=== PATIENT | female | born 1975 | race Caucasian/White ===

== ENCOUNTER 2020-06-20 13:06 | Outpatient (REF) | payer OTHER, SELFPAY ==
[2020-06-20 13:26] LABS: COVID-19 Test Negative (Negative)
== END 2020-06-20 13:07 | disposition home or self-care (01) ==
LOC: HO.EMPCOV 13:06
PROVIDERS: Visit Provider Internal Medicine
DX: Z20.828 Contact with and (suspected) exposure to other viral communicable diseases (principal)
CPT/HCPCS: 87635; C9803

== ENCOUNTER 2020-06-27 10:45 | Outpatient (REF) | payer OTHER, SELFPAY ==
[2020-06-27 11:15] LABS: COVID-19 Test Negative (Negative); IDNOW Serial# 55D5AD1C
== END 2020-06-27 10:46 | disposition home or self-care (01) ==
LOC: HO.EMPCOV 10:45
PROVIDERS: Visit Provider Internal Medicine
DX: Z20.828 Contact with and (suspected) exposure to other viral communicable diseases (principal)
CPT/HCPCS: 87635; C9803

== ENCOUNTER 2020-09-15 14:51 | Outpatient (REF) | payer OTHER, SELFPAY ==
--- NOTE | ~2020-09-15 | XR_ITS ---
EXAMINATION: XR thoracic spine 2V, XR lumbar spine 2-3V, XR cervical spine 3V, XR shoulder RT min 2V CLINICAL INFORMATION: Cervicalgia. Pain in thoracic spine. Spondylosis without myelopathy or radiculopathy, lumbar region. Pain in right shoulder COMPARISON: None. TECHNIQUE: AP and lateral views of the lumbar spine with lateral view of the lumbosacral junction. AP and lateral views of the thoracic spine. AP, lateral, and odontoid views of the cervical spine. AP external rotation, Grashey, axillary, and Y views of the right shoulder. FINDINGS: Visualized clavicle is intact. The right acromioclavicular and glenohumeral joints are maintained. No fracture or dislocation seen. The dens is intact. The lateral masses are normally positioned. Normal sagittal alignment of the cervical spine. Normal prevertebral soft tissues. Mild degenerative endplate irregularity at C6-7 and C7-T1 no fracture seen. Normal sagittal alignment of the thoracic spine. Vertebral body and disc heights in the thoracic spine are maintained. Posterior elements are intact. 5 nonrib-bearing lumbar type vertebral bodies are present. Normal sagittal alignment of the lumbar spine. There may be mild lower lumbar facet arthropathy. Mild spurring of the superior endplate of L5. XR/XR lumbar spine 2-3V IMPRESSION: No acute osseous abnormality of the right shoulder, cervical spine, thoracic spine, or lumbar spine. Mild degenerative changes at C6-7, C7-T1, and L4-5.
--- NOTE | ~2020-09-15 | XR_ITS ---
EXAMINATION: XR thoracic spine 2V, XR lumbar spine 2-3V, XR cervical spine 3V, XR shoulder RT min 2V CLINICAL INFORMATION: Cervicalgia. Pain in thoracic spine. Spondylosis without myelopathy or radiculopathy, lumbar region. Pain in right shoulder COMPARISON: None. TECHNIQUE: AP and lateral views of the lumbar spine with lateral view of the lumbosacral junction. AP and lateral views of the thoracic spine. AP, lateral, and odontoid views of the cervical spine. AP external rotation, Grashey, axillary, and Y views of the right shoulder. FINDINGS: Visualized clavicle is intact. The right acromioclavicular and glenohumeral joints are maintained. No fracture or dislocation seen. The dens is intact. The lateral masses are normally positioned. Normal sagittal alignment of the cervical spine. Normal prevertebral soft tissues. Mild degenerative endplate irregularity at C6-7 and C7-T1 no fracture seen. Normal sagittal alignment of the thoracic spine. Vertebral body and disc heights in the thoracic spine are maintained. Posterior elements are intact. 5 nonrib-bearing lumbar type vertebral bodies are present. Normal sagittal alignment of the lumbar spine. There may be mild lower lumbar facet arthropathy. Mild spurring of the superior endplate of L5. XR/XR thoracic spine 2V IMPRESSION: No acute osseous abnormality of the right shoulder, cervical spine, thoracic spine, or lumbar spine. Mild degenerative changes at C6-7, C7-T1, and L4-5.
--- NOTE | ~2020-09-15 | XR_ITS ---
EXAMINATION: XR thoracic spine 2V, XR lumbar spine 2-3V, XR cervical spine 3V, XR shoulder RT min 2V CLINICAL INFORMATION: Cervicalgia. Pain in thoracic spine. Spondylosis without myelopathy or radiculopathy, lumbar region. Pain in right shoulder COMPARISON: None. TECHNIQUE: AP and lateral views of the lumbar spine with lateral view of the lumbosacral junction. AP and lateral views of the thoracic spine. AP, lateral, and odontoid views of the cervical spine. AP external rotation, Grashey, axillary, and Y views of the right shoulder. FINDINGS: Visualized clavicle is intact. The right acromioclavicular and glenohumeral joints are maintained. No fracture or dislocation seen. The dens is intact. The lateral masses are normally positioned. Normal sagittal alignment of the cervical spine. Normal prevertebral soft tissues. Mild degenerative endplate irregularity at C6-7 and C7-T1 no fracture seen. Normal sagittal alignment of the thoracic spine. Vertebral body and disc heights in the thoracic spine are maintained. Posterior elements are intact. 5 nonrib-bearing lumbar type vertebral bodies are present. Normal sagittal alignment of the lumbar spine. There may be mild lower lumbar facet arthropathy. Mild spurring of the superior endplate of L5. XR/XR shoulder RT min 2V IMPRESSION: No acute osseous abnormality of the right shoulder, cervical spine, thoracic spine, or lumbar spine. Mild degenerative changes at C6-7, C7-T1, and L4-5.
--- NOTE | ~2020-09-15 | XR_ITS ---
EXAMINATION: XR thoracic spine 2V, XR lumbar spine 2-3V, XR cervical spine 3V, XR shoulder RT min 2V CLINICAL INFORMATION: Cervicalgia. Pain in thoracic spine. Spondylosis without myelopathy or radiculopathy, lumbar region. Pain in right shoulder COMPARISON: None. TECHNIQUE: AP and lateral views of the lumbar spine with lateral view of the lumbosacral junction. AP and lateral views of the thoracic spine. AP, lateral, and odontoid views of the cervical spine. AP external rotation, Grashey, axillary, and Y views of the right shoulder. FINDINGS: Visualized clavicle is intact. The right acromioclavicular and glenohumeral joints are maintained. No fracture or dislocation seen. The dens is intact. The lateral masses are normally positioned. Normal sagittal alignment of the cervical spine. Normal prevertebral soft tissues. Mild degenerative endplate irregularity at C6-7 and C7-T1 no fracture seen. Normal sagittal alignment of the thoracic spine. Vertebral body and disc heights in the thoracic spine are maintained. Posterior elements are intact. 5 nonrib-bearing lumbar type vertebral bodies are present. Normal sagittal alignment of the lumbar spine. There may be mild lower lumbar facet arthropathy. Mild spurring of the superior endplate of L5. XR/XR cervical spine 3V IMPRESSION: No acute osseous abnormality of the right shoulder, cervical spine, thoracic spine, or lumbar spine. Mild degenerative changes at C6-7, C7-T1, and L4-5.
== END 2020-09-15 14:52 | disposition home or self-care (01) ==
LOC: HO.XRAY 14:51
PROVIDERS: PCP Physician Assistant; Visit Provider Internal Medicine
DX: M54.6 Pain in thoracic spine (principal); M47.816 Spondylosis without myelopathy or radiculopathy, lumbar region; M25.511 Pain in right shoulder; M54.2 Cervicalgia
CPT/HCPCS: 72040; 72070; 72100; 73030

== ENCOUNTER 2020-11-19 16:00 | Outpatient (RCR) | payer OTHER, SELFPAY ==
--- NOTE | 2020-09-22 13:12 | MHC.PT.EP ---
[facility] [place] Office [place] Office [place] Office [address] Tiffany Tinajero [address] [phone] F: [phone] F: [phone] F: [phone] F: [phone] Physical Therapy Plan of Care Date of Evaluation: 09/22/20 Date of Surgery: N/A Diagnosis: Pain in right shoulder Cervicalgia Assessment: Mendy is a 44-year-old female referred to physical therapy with right shoulder pain. Her pain is located in her right upper trap and travels to the top of her right shoulder and AC joint. She presents with impairments in global R shoulder strength, impaired posture, decreased scapular muscle strength, and tenderness and muscle guarding in her right upper trap. These impairments results in pain with ADLS. Mendy would benefit from skilled therapy to improve her tolerance to reaching behind her back and overhead, lifting and carrying items, bathing and dressing, and caring for her child. Frequency and Duration: The patient will be seen 2 visits per week for 6 weeks Short Term Goals: 1.) Pt will demonstrate ability to reach behind her back for bathing and dressing purposes with <2/10 pain within 3 weeks. 2.) Pt will independently assess and correct seated posture every 30 minutes while working within 3 weeks. 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 2.) Pt will be independent with [facility] for symptom management and maintenance following discharge within 6 weeks. Treatment Plan: Modalities to reduce pain, spasms and effusion. Manual therapy to restore motion and function. Therapeutic exercise to improve strength and flexibility. Neuromuscular re-education for posture and balance. Therapeutic activities to return to functional activities of daily living. Electronically signed by: Glo Palmer, PT, DPT Please sign and return to therapist. Thank you for your referral.
--- NOTE | 2020-12-17 15:50 | MHC.PT.DC ---
[facility] [place] Office [place] Office [place] Office [address] Tiffany Tinajero [address] [facility] [phone] F: [phone] F: [phone] F: [phone] F: [phone] Physical Therapy Discharge Report Diagnosis: Pain in right shoulder Cervicalgia Date of Surgery: N/A Date of Evaluation: 09/22/20 Date of Discharge: 11/19/20 Treatments to Date: 8 Cancellations to Date: 3 No Shows to Date: 0 Discharge Status: Improved Function Independent with HEP Discharge Summary: Mendy has completed 8 PT visits and has noted improvement in her functions and pain level. She is independent with all her HEPs as well. She was therefore been d/c from therapy. Electronically signed by: Glo Palmer, PT, DPT Please sign and return to therapist. Thank you for your referral.
== END 2020-12-17 15:51 | disposition other institution (70) ==
LOC: HO.PT 16:00
PROVIDERS: PCP Internal Medicine; Visit Provider Internal Medicine
DX: M25.511 Pain in right shoulder (principal); M54.2 Cervicalgia
CPT/HCPCS: 97110; 97112; 97140; 97161

== ENCOUNTER 2020-12-12 08:42 | Outpatient (REF) | payer OTHER, SELFPAY ==
[2020-12-12 09:00] LABS: COVID-19 Test Negative (Negative)
== END 2020-12-12 08:43 | disposition home or self-care (01) ==
LOC: HO.EMPCOV 08:42
PROVIDERS: Visit Provider Internal Medicine
DX: Z20.822 Contact with and (suspected) exposure to COVID-19 (principal)
CPT/HCPCS: 36415; 87635; C9803

== ENCOUNTER 2020-12-16 09:21 | Outpatient (REF) | payer OTHER, SELFPAY ==
[2020-12-16 09:39] LABS: COVID-19 Test Negative (Negative)
== END 2020-12-16 09:22 | disposition home or self-care (01) ==
LOC: HO.EMPCOV 09:21
PROVIDERS: Visit Provider Internal Medicine
DX: Z20.822 Contact with and (suspected) exposure to COVID-19 (principal)
CPT/HCPCS: 36415; 87635; C9803

== ENCOUNTER 2022-02-09 16:48 | Outpatient (REF) | payer OTHER, SELFPAY ==
--- NOTE | ~2022-02-09 | XR_ITS ---
EXAMINATION: XR KNEE, RIGHT CLINICAL INFORMATION: Pain COMPARISON: None TECHNIQUE: Four views of the right knee. FINDINGS: Bones and soft tissues are normal. No fracture or joint effusion. Alignment is anatomic. Joint spaces are well maintained. No abnormal soft tissue calcification. XR/XR knee RT 2V IMPRESSION: Unremarkable right knee.
== END 2022-02-09 16:49 | disposition home or self-care (01) ==
LOC: HO.XRAY 16:48
PROVIDERS: PCP Internal Medicine; Visit Provider Internal Medicine
DX: M25.561 Pain in right knee (principal)
CPT/HCPCS: 73560

== ENCOUNTER 2022-04-28 14:00 | Outpatient (RCR) | payer OTHER, SELFPAY ==
--- NOTE | 2022-02-16 15:48 | MHC.PT.EP ---
[facility] [place] Office [place] Office [place] [facility] [address] Tiffany Tinajero [address] [phone] F: [phone] F: [phone] F: [phone] F: [phone] Physical Therapy Plan of Care Date of Evaluation: Date of Surgery: N/A Diagnosis: pain in R knee (RC) Assessment: pt is a 46 y/o female presenting to physical therapy w/ referring diagnosis of right knee pain. Her signs and symptoms are consistent w/ quad strain. Impairments include pain, decreased range of motion, decreased strength, impaired functional mobility, impaired postural awareness, and gait deviations. pt is a good candidate for skilled PT due to age, potential remediation of impairments, typical disease/condition progression and prognosis, comorbidities, and motivation. pt would benefit from tailored strengthening and stretching exercise program, functional training, gait training, postural re-training, neuromuscular re-education, modalities as needed for pain, equipment safety demonstration. Frequency and Duration: The patient will be seen 2x/wk for 4 wks Short Term Goals: pt will be I w/ HEP to promote self-management of condition. pt will demo improved squat mechanics w/ improved hip and knee flexion to reduce stress on knee w/ reaching to get objects off the floor. Photographer Portrait Goals: pt will report a statistically significant improvement in self-reported outcome measure, LEFI, to promote return to PLOF. pt will report a 75% pain reduction w/ ascending and descending her stairs to access primary living spaces. Treatment Plan: Modalities to reduce pain, spasms and effusion. Manual therapy to restore motion and function. Therapeutic exercise to improve strength and flexibility. Neuromuscular re-education for posture and balance. Therapeutic activities to return to functional activities of daily living. Electronically signed by: Please sign and return to therapist. Thank you for your referral.
--- NOTE | 2022-04-28 14:37 | MHC.PT.DC ---
[facility] [place] Office [place] Office [place] Office [address] Tiffany Tinajero [address] [phone] F: [phone] F: [phone] F: [phone] F: [phone] Physical Therapy Discharge Report Diagnosis: pain in R knee (RC) Date of Surgery: N/A Date of Evaluation: 02/15/22 Date of Discharge: Treatments to Date: 3 Cancellations to Date: 0 No Shows to Date: 0 Discharge Status: Discharge Summary: The patient arrived after two months after her initial evaluation and first follow-up. She stated she feels her symptoms have resolved 95%. She has had fair compliance with recommended exercises to manage her symptoms. We reviewed this home exercise program and she continues to feel good without symptoms. She felt relieved and a release of tension after stretching. We reviewed importance of appropriate warm-up prior to activity, gradual return to running (recommended Couch to 5K mimi), and compliance to HEP. She is discharged from this physical therapy plan of care. Electronically signed by: Please sign and return to therapist. Thank you for your referral.
== END 2022-04-28 14:37 | disposition home or self-care (01) ==
LOC: HO.PT 14:00
PROVIDERS: PCP Internal Medicine; Visit Provider Internal Medicine
DX: M25.561 Pain in right knee (principal)
CPT/HCPCS: 97110; 97161

== ENCOUNTER 2022-06-03 12:30 | Outpatient (REF) | payer OTHER, SELFPAY ==
--- NOTE | ~2022-06-03 | MM_ITS ---
EXAMINATION: MM SCREENING DIGITAL BREAST TOMOSYNTHESIS, BILATERAL CLINICAL INFORMATION: Screening. Asymptomatic. COMPARISON: Mammography: None TECHNIQUE: Digital breast tomosynthesis is performed in both the craniocaudal and mediolateral oblique views along with computer-aided detection (CAD). Synthesized 2D images are generated from the tomosynthesis. FINDINGS: There are scattered areas of fibroglandular density (ACR BI-RADS breast composition Category b). There are no significant masses, abnormal calcifications, or other abnormalities. MM/MM tomosynthesis screening BI IMPRESSION: No mammographic evidence of malignancy. ASSESSMENT: BI-RADS 1: Negative RECOMMENDATION: Routine annual mammography screening. This patient's information was entered into a reminder system with a target due date for their next mammogram.
== END 2022-06-03 12:31 | disposition home or self-care (01) ==
LOC: HO.MAMMO 12:30
PROVIDERS: PCP Internal Medicine; Visit Provider Internal Medicine
DX: Z12.31 Encounter for screening mammogram for malignant neoplasm of breast (principal)
CPT/HCPCS: 77063; 77067

== ENCOUNTER 2022-06-05 07:36 | Outpatient (REF) | payer OTHER, SELFPAY ==
[2022-06-05 07:48] LABS: MANUAL DIFF FLAG NO
[2022-06-05 08:15] LABS: Basophils Percent Auto 0.5 % (0-2); Eosinophils Absolute Auto 0.1 X10*3/uL (0.0-0.4); Eosinophils Percent Auto 3.2 % (0-4); Hemoglobin 12.4 g/dl (12.0-16.0); Imm Gran Abs Auto 0.01 X10*3/uL (0.00-0.03); Imm Gran Pct Auto 0.2 % (0.0-0.4); Lymphocytes Absolute Auto 1.7 X10*3/uL (1.2-4.9); Lymphocytes Percent Auto 37.4 % (20-40); Mean Corpuscular HGB Conc 35.4 g/dl (31.0-35.0); Mean Corpuscular Hemoglobin 31.6 pg (27.0-33.0); Mean Corpuscular Volume 89.3 fL (80.0-98.0); Mean Platelet Volume 9.8 fL (9.4-12.3); Monocytes Absolute Auto 0.3 X10*3/uL (0.1-1.2); Monocytes Percent Auto 7.2 % (2-11); Neutrophils Absolute Auto 2.3 x10*3/uL (2.0-8.3); Neutrophils Percent Auto 51.5 % (45-73); Platelet Count 238 X10*3/uL (160-400); Red Blood Count 3.92 X10*6/uL (4.20-5.50); White Blood Count 4.4 X10*3/uL (4.8-10.8)
[2022-06-05 08:40] LABS: Alanine Aminotransferase 21 U/L (0-31); Albumin Level 4.4 g/dL (3.5-5.0); Alkaline Phosphatase 44 U/L (39-117); Anion Gap 14 (12-20); Aspartate Amino Transferase 18 U/L (5-31); Bilirubin Total 0.5 mg/dL (0.0-1.0); Blood Urea Nitrogen 13 mg/dL (9-16); Calcium 9.4 mg/dL (8.4-10.2); Carbon Dioxide 24 mmol/L (22-29); Chloride 105 mmol/L (96-108); Cholesterol 160 mg/dL; Estimated Glomerular Filt Rate > 60; Glucose Random 89 mg/dL (60-115); HDL Cholesterol 43 mg/dL; LDL Cholesterol Calculated 102 mg/dl; Potassium 4.1 mmol/L (3.3-5.1); Sodium 139 mmol/L (135-145); Total Protein 7.2 g/dL (6.5-8.0); Triglycerides 79 mg/dL
[2022-06-05 09:01] LABS: Free T4 (Free Thyroxine) 1.01 ng/dL (0.71-1.85); Thyroid Stimulating Hormone 2.32 uIU/mL (0.32-4.0)
[2022-06-05 09:11] LABS: Appearance Urine Clear; Color Urine Yellow; Glucose Urine UA Negative (Negative); Leukocyte Esterase Urine Negative (Negative); Nitrite Urine Negative (Negative); Urine Blood Negative (Negative); Urine Ketones Negative (Negative); Urine Protein Negative (Neg-Trace)
[2022-06-05 09:13] LABS: Folate 11.3 ng/mL (> or = 4.0); Vitamin B12 361 pg/mL (200-900)
[2022-06-05 09:17] LABS: Bacteria Urine None Seen (None Seen); Hyaline Casts Urine 0-2 /LPF (0-2); RBC Urine 0-2 /HPF (0-2); Squamous Epithelial Cell Urine 0-2 /HPF (0-2); WBC Urine 0-5 /HPF (0-5)
[2022-06-05 15:16] LABS: Vitamin D 25-OH Total 19.4 ng/mL (>30)
== END 2022-06-05 07:37 | disposition home or self-care (01) ==
LOC: HO.LAB 07:36
PROVIDERS: PCP Internal Medicine; Visit Provider Internal Medicine
DX: E66.3 Overweight (principal)
CPT/HCPCS: 36415; 80053; 80061; 81001; 82306; 82607; 82746; 84439; 84443; 85025

== ENCOUNTER 2022-07-12 12:37 | Outpatient (REF) | payer OTHER, SELFPAY ==
[2022-07-12 13:34] LABS: Influenza A PCR POSITIVE (Negative); Influenza B PCR NEGATIVE (Negative); Resp Syncy Virus RNA Qual PCR NEGATIVE (Negative); SARS COV2 PCR INHOUSE NEGATIVE (Negative)
== END 2022-07-12 12:38 | disposition home or self-care (01) ==
LOC: HO.LAB 12:37
PROVIDERS: PCP Internal Medicine; Visit Provider Internal Medicine
DX: Z20.822 Contact with and (suspected) exposure to COVID-19 (principal); R05.9 Cough, unspecified
CPT/HCPCS: 0241U

== ENCOUNTER 2022-10-04 16:00 | Outpatient (RCR) | payer OTHER, SELFPAY ==
--- NOTE | 2022-07-16 12:16 | MHC.PT.EP ---
[facility] [place] Office [place] Office [place] Office [address] Tiffany Tinajero [address] [phone] F: [phone] F: [phone] F: [phone] F: [phone] Physical Therapy Plan of Care Date of Evaluation: Date of Surgery: Diagnosis: R shoulder pain, adhesive capsulitis Assessment: Patient is a 46 y.o. female who is referred to PT by Dr. Darrell Gandhi MD with Dx of R shoulder pain. PT diagnosis is R shoulder adhesive capsulitis. Patient impairments include pain, weakness, and reduced ROM. Patient current functional limitations are reaching behind back to put on bra, reaching to wash her hair, can't sleep on it, weakness with carrying on R arm, reaching to high shelf. Patient will benefit from skilled PT to address aforementioned impairments and functional limitations to meet established goals. Frequency and Duration: The patient will be seen 2x/week for 4 weeks Short Term Goals: 2 weeks Patient demonstrates consistency and independence with HEP to self manage symptoms. Patient presents with increased R shoulder ER 60 degrees to be able to reach behind back to don/doff bra. Chcf Goals: 4 weeks Patient presents with increased R shoulder flexion 170 degrees to be able to reach overhead to high cabinet/shelf. Patient presents with increased R shoulder flexion 5/5 to be able to carry grocery bag R hand. Treatment Plan: Modalities to reduce pain, spasms and effusion. Manual therapy to restore motion and function. Therapeutic exercise to improve strength and flexibility. Neuromuscular re-education for posture and balance. Therapeutic activities to return to functional activities of daily living. Electronically signed by: Thanh Toscano, PT, DPT Please sign and return to therapist. Thank you for your referral.
--- NOTE | 2022-12-06 16:49 | MHC.PT.DC ---
[facility] [place] Office [place] Office [place] Office [address] Tiffany Tinajero [address] [phone] F: [phone] F: [phone] F: [phone] F: [phone] Physical Therapy Discharge Report Diagnosis: R shoulder pain, adhesive capsulitis Date of Surgery: Date of Evaluation: 07/16/22 Date of Discharge: 12/06/22 Treatments to Date: 10 Cancellations to Date: No Shows to Date: Discharge Status: Independent with HEP Discharge Summary: In PT, patient has shown improved ROM and strength, but ceased attending on her own accord. She has an independent HEP to help her self manage sxs. She is discharged from PT at this time. Electronically signed by: Thanh Toscano, PT, DPT Please sign and return to therapist. Thank you for your referral.
== END 2022-12-06 16:50 | disposition home or self-care (01) ==
LOC: HO.PT 16:00
PROVIDERS: PCP Internal Medicine; Visit Provider Internal Medicine
DX: M25.511 Pain in right shoulder (principal)
CPT/HCPCS: 97110; 97140; 97161

== ENCOUNTER 2022-10-12 15:05 | Outpatient (REF) | payer OTHER, SELFPAY | END 2022-10-12 15:06 | disposition home or self-care (01) | LOC: HO.SH 15:05 | PROVIDERS: Visit Provider Internal Medicine | DX: H93.293 Other abnormal auditory perceptions, bilateral (principal) | CPT/HCPCS: 92557; 92567 ==

== ENCOUNTER 2022-11-11 11:18 | Outpatient (REF) | payer OTHER, SELFPAY ==
[2022-11-11 12:17] LABS: Influenza A PCR NEGATIVE (Negative); Influenza B PCR NEGATIVE (Negative); Resp Syncy Virus RNA Qual PCR NEGATIVE (Negative); SARS COV2 PCR INHOUSE NEGATIVE (Negative)
== END 2022-11-11 11:19 | disposition home or self-care (01) ==
LOC: HO.LNP 11:18
PROVIDERS: Visit Provider Internal Medicine
DX: R09.89 Other specified symptoms and signs involving the circulatory and respiratory systems (principal); Z20.822 Contact with and (suspected) exposure to COVID-19
CPT/HCPCS: 0241U

== ENCOUNTER 2023-02-09 10:24 | Outpatient (AMB) | payer OTHER, SELFPAY ==
[2023-02-09 10:27] VITALS: BP 124/78; PULSE 77; O2SAT 98; BMI 25.6
--- NOTE | 2023-02-09 10:27 | MHC.PC.OV ---
Vital Signs 02/09/23 10:27 Height 5 ft 4 in Weight 149 lb BMI 25.6 BP 124/78 Blood Pressure Location Lt brachial Position Sitting Pulse 77 Pulse Source Pulse Oximeter Pulse Oximetry (%) 98 Oxygen Delivery Method Room Air Intake Visit Reasons: 3m follow up Allergies No Known Allergies [No Known Allergies*] Allergy (Verified 02/09/23 10:27) Tobacco use date assessed: 02/09/23 Dental Screening Dental Screen Date: 02/09/23 Did you have a dental visit in the last 12 months?: Yes Did you have a dental problem in the last 6 months where you did not have access to dental care?: No Was dental information given to patient?: Patient has dentist HPI 3m follow up HPI Details 47-year-old Year old overweight female last seen in April 2022 came in for physical exam. Advised preventive medicine of mammogram blood work had some shoulder pain on the right and went for physical therapy patient is here for follow-up. Patient did go to the Urgent Center in October 2022 for flu like symptoms. Found to have flu. Patient has been doing good the right shoulder is a little bit better although has some small limitation but otherwise doing good discussed about exercising. Patient is very stressed out as father is sick with peripheral tear disease from a diabetes and she is taking care. 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 1. Little interest or pleasure in doing things: not at all 2. Feeling down, depressed, or hopeless: not at all 3. Trouble falling or staying asleep, or sleeping too much: not at all 4. Feeling tired or having little energy: not at all 5. Poor appetite or overeating: not at all 6. Feeling bad about yourself - or that you are a failure or have let yourself or your family down: not at all 7. Trouble concentrating on things, such as reading the newspaper or watching television: not at all 8. Moving or speaking so slowly that other people could have noticed. Or the opposite - being so fidgety or restless that you have been moving around a lot more than usual: not at all 9. Thoughts that you would be better off or of hurting yourself in some way: not at all Total score: 0 Depression Screening Interpretation: Negative Source: Developed by Drs. Juan Obrien, Nasreen Granda, Jaswinder Min and colleagues, with an educational derrick from [employer]. Thrive Questionnaire Date Thrive assessed: 02/09/23 I am a: Patient What is your living situation today?: I have a steady place to live Within the past 12 months, did the food you bought not last and you didn't have the money to get more?: Never true Within the past 12 months, did you worry whether your food would run out before you got money to buy more?: Never true Do you have trouble paying for medicines?: No Do you have trouble getting transportation to medical appointments?: No Do you have trouble paying your heating and electricity bill?: No Do you have trouble taking care of your child, family member or friend?: No Do you have trouble with day-to-day activities such as bathing, preparing meals, shopping, managing finances, etc.?: No Are you currently unemployed and looking for a job?: No Are you interested in more education?: No Currently or been in a relationship where the following occur: no concerns reported AUDIT C Alcohol Use Questionnaire (AUDIT-C) 1. How often do you have a drink containing alcohol?: Monthly or less 2. How many drinks containing alcohol do you have on a typical day when you are drinking?: 1 or 2 3. How often do you have six or more drinks on one occasion?: Never Total Score: 1 JOB-7 AMB Questionnaire JOB-7 Date JOB - 7 assessed: 02/09/23 Feeling nervous, anxious, or on edge: 0 = Not at all Not being able to stop or control worryin = Not at all Worrying too much about different things: 0 = Not at all Trouble relaxin = Not at all Being so restless that it is hard to sit still: 0 = Not at all Becoming easily annoyed or irritable: 0 = Not at all Feeling afraid as if something awful might happen: 0 = Not at all Total JOB-7 score (0-4 normal; 5-9 mild; 10-14 moderate; 15-21 severe): 0 Source: Developed by Drs. Juan Obrien, Nasreen Granda, Jaswinder Min and colleagues, with an educational derrick from [employer]. Physical exam (Primary Care) Vital Signs: Last Vital Signs Pulse 77 02/09/23 10:27 BP 124/78 02/09/23 10:27 Pulse Ox 98 02/09/23 10:27 Oxygen Delivery Method Room Air 02/09/23 10:27 BMI result Body Mass Index 25.6 Tobacco/Smoking Status: Tobacco use Status Tobacco use date assessed 02/09/23 02/09/23 10:33 Patient Tobacco Use Status Never used Tobacco 02/09/23 10:33 e-Cigarette/Vaping Use Never Used 02/09/23 10:33 PHQ-9: PHQ-9 Score PHQ-9: Total score 0 02/09/23 10:33 Depression Screening Interpretation: Negative Thrive Assessment: Date of Thrive Assessment Date Thrive assessed 02/09/23 02/09/23 10:33 Currently or been in a relationship where the following occur: no concerns reported Const General: alert; No acute distress Eyes Conjunctivae: conjunctivae normal Resp Auscultation: clear to auscultation bilaterally Cardio Rate: regular rate Rhythm: regular rhythm GI Inspection: Yes normal to inspection Extrem General: Yes normal to inspection and No edema Assessment and Plan Assessment & Plan (1) Vitamin D deficiency: Code(s): E55.9 - Vitamin D deficiency, unspecified (2) Right shoulder pain: Code(s): M25.511 - Pain in right shoulder (3) Influenza: Code(s): J11.1 - Influenza due to unidentified influenza virus with other respiratory manifestations (4) Cervical cancer screening: Code(s): Z12.4 - Encounter for screening for malignant neoplasm of cervix Orders: Referrals PACKAGE CLERK Referral Z12.4 - Encounter for screening for malignant neoplasm of cervix Coding Level of Care Code Est Pt Level 4 (68021) Diagnoses Vitamin D deficiency E55.9 Right shoulder pain M25.511 Influenza J11.1 Cervical cancer screening Z12.4
== END 2023-02-09 11:07 | disposition home or self-care (01) ==
PROVIDERS: PCP Internal Medicine; Visit Provider Internal Medicine
DX: E55.9 Vitamin D deficiency, unspecified (principal); M25.511 Pain in right shoulder; J11.1 Influenza due to unidentified influenza virus with other respiratory manifestations
CPT/HCPCS: 99214

== ENCOUNTER 2023-04-12 08:46 | Outpatient (AMB) | payer OTHER, SELFPAY ==
--- NOTE | 2023-04-12 08:48 | AM.OFFWIN_ITS ---
Intake Vital Signs 04/12/23 08:50 Weight 148 lb BP 100/70 Blood Pressure Location Rt brachial Position Sitting Pulse 61 Pulse Source Pulse Oximeter Pulse Oximetry (%) 98 Oxygen Delivery Method Room Air Intake Visit Reasons: EP, Left eye redness Intake Note: Patient here because she woke up this morning with her left eye red and slight headache, she states it is very puffy, vision looks glossy she states she just moved back into her home where [place], she also mentioned someone in her dept had pink eye recently so she is unsure what it could be. Patient Tobacco Use Status: Never used Tobacco Allergies No Known Allergies [No Known Allergies*] Allergy (Verified 04/12/23 09:19) Medication List - Last Reconciled 04/12/23 by Jacobo Watkins MD No Known Home Meds Do you need a note to return to daycare/school/sports/work: Yes HPI EP, Left eye redness HPI Details 47-year-old female presents to the [facility] for a sick visit. Patient has a pinkeye since this morning. Increased tearing and mucoid discharge. She has not been wearing contact lenses for more than a month for other reasons. She has a new cat at home. 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 Corneas clear. No fluoro uptake. Assessment & Plan Assessment & Plan (1) Conjunctivitis: Code(s): H10.9 - Unspecified conjunctivitis Plan: Erythromycin ophthalmic ointment prescribed. If symptoms not better to follow- up here. Coding Level of Care Code Est Pt Level 3 (04177) Diagnoses Conjunctivitis H10.9
[2023-04-12 08:50] VITALS: BP 100/70; PULSE 61; O2SAT 98
== END 2023-04-12 09:27 | disposition home or self-care (01) ==
PROVIDERS: PCP Internal Medicine; Visit Provider Internal Medicine
DX: H10.9 Unspecified conjunctivitis (principal)
CPT/HCPCS: 99213

== ENCOUNTER 2023-06-03 16:21 | Outpatient (AMB) | payer OTHER, SELFPAY ==
--- NOTE | 2023-06-03 16:24 | A.OFFPC_ITS ---
Vital Signs 06/03/23 16:26 Height 5 ft 4 in Weight 151 lb 2 oz BMI 25.9 BP 112/74 Blood Pressure Location Lt brachial Position Sitting Respiration 16 Pulse 75 Pulse Source Pulse Oximeter Pulse Oximetry (%) 98 Oxygen Delivery Method Room Air Intake Visit Reasons: physical Allergies No Known Allergies [No Known Allergies*] Allergy (Verified 04/12/23 09:19) Medication List - Last Reconciled 06/03/23 by Darrell Gandhi MD Tobacco use date assessed: 02/09/23 HPI physical HPI Details 47-year-old female last seen in January coming in for physical exam. Review of the notes [facility] in the Urgent [facility] for left eye conjunctivitis [facility] Medical History (Updated 04/12/23 @ 09:23 by Jacobo Watkins MD) Cervical cancer screening Thoracic spine pain Right shoulder pain Neck pain Lumbar spondylosis Family History (Updated 06/03/23 @ 16:47 by Darrell Gandhi MD) Mother Myocardial infarct Father Renal cancer Myocardial infarct Diabetes mellitus Maternal Grandfather Colon cancer Social History (Updated 06/03/23 @ 16:48 by Darrell Gandhi MD) Housing: House Alcohol intake: current Patient Tobacco Use Status: Never used Tobacco e-Cigarette/Vaping Use: Never Used service: No Current occupational status: employed 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 Juan Obrien, Nasreen Granda, Jaswinder Min and colleagues, with an educational derrick from [employer]. Review of Systems Const Denies poor appetite and Denies weakness Eyes Denies no additional complaints ENT Reports Normal hearing present, Denies dizziness, Denies nasal congestion, Denies tinnitus and Denies sore throat Card Denies chest pain, Denies syncope, Denies rapid heart rate and Denies dyspnea Resp Denies cough and Denies dyspnea GI Denies change in stool character, Reports constipation, Denies diarrhea, Denies nausea and Denies vomiting Denies urinary frequency, Denies difficulty voiding and Denies dysuria Neuro Reports Normal hearing present, Denies confusion, Denies dizziness, Denies syncope and Denies weakness Psych Denies confusion Physical exam (Primary Care) Vital Signs: Last Vital Signs Pulse 75 06/03/23 16:26 Resp 16 06/03/23 16:26 BP 112/74 06/03/23 16:26 Pulse Ox 98 06/03/23 16:26 Oxygen Delivery Method Room Air 06/03/23 16:26 BMI result Body Mass Index 25.9 Tobacco/Smoking Status: Tobacco use Status Tobacco use date assessed 02/09/23 06/03/23 16:25 Patient Tobacco Use Status Never used Tobacco 06/03/23 16:48 e-Cigarette/Vaping Use Never Used 06/03/23 16:48 Thrive Assessment: Date of Thrive Assessment Date Thrive assessed 02/09/23 06/03/23 16:25 Const General: No confusion Orientation/consciousness: No confusion HENMT Head: Yes normocephalic Ears: external ears normal and TM's normal bilaterally Face and sinus: Yes normal facial exam Mouth: moist mucous membranes Throat: Yes tonsils normal Eyes Conjunctivae: conjunctivae normal Pupils: Equal, round and reactive pupils present and Pupil accommodation reflex normal Direct Ophthalmoscopy: normal light reflex Neck Neck: No lymphadenopathy Thyroid: Thyroid normal Chest Chest palpation & inspection: normal inspection of the chest Resp Effort & Inspection: normal respiratory effort and no audible wheezes Auscultation: clear to auscultation bilaterally, no crackles, no wheezes and lung sounds not diminished Cardio Rate: regular rate Rhythm: regular rhythm Peripheral pulses: radial pulses present and dorsalis pedis present GI Palpation (GI): no masses Auscultation: normal bowel sounds and normoactive bowel sounds Rectal Exam - Female: deferred Skin General skin exam: no rashes or lesions noted Rashes: no rashes Neuro General: No confusion Cranial nerves: Yes Equal, round and reactive pupils present and Yes Normal hearing present Cognition (Neuro): normal cognition Gait exam (Neuro): Normal gait present Motor exam (neuro): 5/5 motor strength present throughout Deep tendon reflexes (DTR's): Right brachioradialis reflex intensity grade: 2+, Left brachioradialis reflex intensity grade: 2+, Right patellar reflex intensity grade: 2+ and Left patellar reflex intensity grade: 2+ Extrem General: No edema Immunizations tetanus-diphtheria toxoids-Td 2 Lf unit-2 Lf unit/0.5 mL IM suspension Performing Provider: Darrell Gandhi MD [facility] Administered by: KRISTIE Long on 06/03/23 17:08 Dose Route Admin Location Dispensed Lot Number Expiration Date [employer] 0.5 mL IM Left Deltoid 0.5 mL [id number] 11/28/23 [address]-4 [employer] VIS Given Date VIS Provided VIS Publication Date 06/03/23 Single Vaccine 21 Eligibility Eligibility Date Funding Source VFC Eligible-Medicaid 06/03/23 State funds Assessment and Plan Assessment & Plan (1) Annual physical exam: Code(s): Z00.00 - Encounter for general adult medical examination without abnormal findings (2) Colonoscopy refused: Code(s): Z53.20 - Procedure and treatment not carried out because of patient's decision for unspecified reasons Orders: Orders Complete Blood Count Auto Diff Today E55.9 - Vitamin D deficiency, unspecified Vitamin D 25-OH Total Today E55.9 - Vitamin D deficiency, unspecified Free T4 (Free Thyroxine) Today E55.9 - Vitamin D deficiency, unspecified Lipid Panel Today E55.9 - Vitamin D deficiency, unspecified, E78.00 - Pure hypercholesterolemia, unspecified UA CC w/rflx Micro + Cult Today E55.9 - Vitamin D deficiency, unspecified, R30.0 - Dysuria Td State Immunization Today Z23 - Encounter for immunization Comprehensive Met. Panel Today E55.9 - Vitamin D deficiency, unspecified Vitamin B12 and Folate Today E55.9 - Vitamin D deficiency, unspecified Thyroid Stimulating Hormone Today E55.9 - Vitamin D deficiency, unspecified Coding Level of Care Code Est Pt Prev Care 40-64y(47384) Diagnoses Annual physical exam Z00.00 Colonoscopy refused Z53.20
[2023-06-03 16:26] VITALS: BP 112/74; PULSE 75; RESP 16; O2SAT 98; BMI 25.9
== END 2023-06-03 17:09 | disposition home or self-care (01) ==
PROVIDERS: Visit Provider Internal Medicine
DX: Z00.00 Encounter for general adult medical examination without abnormal findings (principal); Z53.20 Procedure and treatment not carried out because of patient's decision for unspecified reasons; Z23 Encounter for immunization
CPT/HCPCS: 90471; 90714; 99396

== ENCOUNTER 2023-07-05 13:39 | Outpatient (AMB) | payer OTHER, SELFPAY ==
--- NOTE | 2023-07-05 13:44 | A.OFFVIS_ITS ---
Intake Vital Signs 07/05/23 13:45 Height 5 ft 4 in Weight 157 lb BMI 26.9 BP 112/72 Intake Visit Reasons: New patient Annual Classified Advertising Clerk Required: No Information Interpreted: non-clinical & clinical Bilingual Receptionist: Bilingual Receptionist offered & declined Allergies No Known Allergies [No Known Allergies*] Allergy (Verified 07/05/23 13:49) Is last menstrual period known: Yes Last menstrual period: 06/22/23 Post menopausal: No HPI HPI Comments History of Present Illness Details She is a new patient, premenopausal woman presenting for annual examination. Doing well with concerns: External skin sensitivity from pads. Seen dermatology many years ago was treated with a topical cream. Occasional irritation, no odors, or discharge, no pelvic pain. She tries to eat healthy and stays active with exercise. Regular monthly menses. Using the fertility awareness method. Is interested in control. Not up-to-date with her mammogram-she was not interested in having them done yearly. Currently is sexually active. She denies vaginal itching and irritation. STI screening offered; she accepts. Denies family history of breast, ovarian or cancer. Family history of colon cancer. Last pap smear 10 years ago, negative. 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 Cognitive needs: No Hearing needs: No Vision needs: Yes Female Reproductive History Menstrual Age of Menarche: 13 Duration of menses: 3-5 days Date of last menstrual period: 06/22/23 control method: none Total pregnancies: 4 Full term: 2 Number of Living Children: 2 Ab induced: 1 Ab spontaneous: 1 Date of Mammogram: 06/03/22 Review of Systems Const All systems reviewed & are unremarkable except as noted in HPI and below Reports as per HPI Eyes Reports no additional complaints ENT Reports no additional complaints Card Reports no additional complaints Resp Reports no additional complaints GI Reports as per HPI and Reports no additional complaints Reports as per HPI Musc Reports no additional complaints Skin/Breast Reports as per HPI Neuro Reports no additional complaints Psych Reports no additional complaints Endo Reports no additional complaints Mic/Lymph Reports no additional complaints Aller/Immun Reports no additional complaints Physical Exam Vital Signs: Last Vital Signs BP 112/72 07/05/23 13:45 BMI result Body Mass Index 26.9 Const General: cooperative, healthy appearing, no acute distress, well developed and alert Orientation/consciousness: patient oriented x3 HEENT Head: Yes normal to inspection Eyes General: appearance normal, both eyes and all related structures Neck Neck: Yes normal visual inspection Thyroid: Thyroid normal Chest Chest palpation & inspection: normal inspection of the chest and other (no puckering, dimpling, peau de orange, retraction, discharge, masses) Breast/axilla inspection: normal inspection of the breasts Breast/axilla palpation: normal palpation of the breasts Resp Effort & Inspection: normal respiratory effort GI Inspection: Yes normal to inspection Palpation (GI): Soft to palpation Rectal Exam - Female: deferred Other: Bilateral labial mild erythema no lesions General: Yes bladder normal to palpation External Female Exam: normal external appearance and normal appearance of the urethra Speculum Exam - Vagina: normal appearance of the vagina, normal palpation and n ormal vaginal discharge Speculum Exam - Cervix: normal appearance of the cervix, normal palpation and Other cervical findings present (Bled slightly with PAP) Bimanual exam- vagina & uterus: normal bimanual exam, normal palpation, uterine size normal, bladder normal to palpation, normal palpation and non-tender Bimanual Exam- Adnexa, other: no masses Skin General skin exam: no rashes or lesions noted Rashes: no rashes Neuro General: patient oriented x3 Cognition (Neuro): normal cognition Extrem General: Yes normal to inspection Psych Attitude: cooperative Thought process: Normal thought process present Assessment & Plan Assessment & Plan (1) Encounter for well woman exam with routine gynecological exam: Code(s): Z01.419 - Encounter for gynecological examination (general) (routine) without abnormal findings (2) Possible exposure to STD: Code(s): Z20.2 - Contact with and (suspected) exposure to infections with a predominantly sexual mode of transmission Plan Discussed: Current recommendations for pap smears per ASCCP guidelines. Breast awareness and periodic breast exams. Maintain a healthy lifestyle including a well balanced diet and routine exercise. Mammogram yearly, strongly recommended, especially if she is interested in using control in the future. Colonoscopy >45, or at risk sooner. CDC guidelines for control efficacy and booklet on control options dispensed today. Patient will schedule a follow-up office visit for control consult. Strongly recommended to reach out to her primary care to proceed with the Cologuard. She is not interested in a colonoscopy at this time. All of her questions and concerns were addressed to the best of my ability. RTO in one year for annual foster parent examination. Orders: Orders MM tomosynthesis screening BI Today Z12.31 - Encounter for screening mammogram for malignant neoplasm of breast Coding Level of Care Code New Pt Prev Care 40-64y(82310) Diagnoses Encounter for well woman exam with routine gynecological exam Z01.419 Possible exposure to STD Z20.2
[2023-07-05 13:45] VITALS: BP 112/72; BMI 26.9
== END 2023-07-05 15:15 | disposition home or self-care (01) ==
PROVIDERS: PCP Internal Medicine; Visit Provider Advanced Practice Midwife
DX: Z01.419 Encounter for gynecological examination (general) (routine) without abnormal findings (principal); Z20.2 Contact with and (suspected) exposure to infections with a predominantly sexual mode of transmission
CPT/HCPCS: 99386

== ENCOUNTER 2023-07-05 13:39 | Outpatient (REF) | payer OTHER, SELFPAY ==
[2023-07-06 05:27] LABS: CT PCR DETECTED (Not Detect.); NG PCR NOT DETECTED (Not Detect.)
[2023-07-08 02:04] LABS: HPV mRNA E6/E7 rflx Not Detected (Not Detected)
== END 2023-07-05 13:40 | disposition home or self-care (01) ==
LOC: HO.LNP 13:39
PROVIDERS: PCP Internal Medicine; Visit Provider Advanced Practice Midwife
DX: Z01.419 Encounter for gynecological examination (general) (routine) without abnormal findings (principal); Z11.51 Encounter for screening for human papillomavirus (HPV); Z20.2 Contact with and (suspected) exposure to infections with a predominantly sexual mode of transmission
CPT/HCPCS: 0353U; 87624; 88142

== ENCOUNTER 2023-07-08 09:33 | Outpatient (AMB) | payer OTHER, SELFPAY ==
--- NOTE | 2023-07-08 09:38 | A.OFFVIS_ITS ---
Intake Vital Signs 07/08/23 09:42 Height 5 ft 4 in Weight 156 lb 8.451 oz BMI 26.9 BP 116/70 Intake Visit Reasons: repeat cultures Bobbin Cleaner Hand Required: No Information Interpreted: non-clinical & clinical Chipping Machine Operator: Chipping Machine Operator offered & declined Accompanied by: Self / Same As Patient Allergies No Known Allergies [No Known Allergies*] Allergy (Verified 07/08/23 09:43) Is last menstrual period known: Yes Last menstrual period: 06/22/23 HPI HPI Comments History of Present Illness Details Here for repeat culture on a recent positive chlamydia test. She is asymptomatic. She is shocked at the results, has been with a long-term and only intimate partner since age 20. He is adamant that he has not been sexually active with anybody else. She requested a repeat culture in case there was a false-positive resulting with the last. She denies any pelvic pain or urinary symptoms. Last cultures would have been 10 years ago with her prior . She reports exposure to HSV 1 and 2 has oral lesions, those records would be further back in a practice that has since closed. 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 Cognitive needs: No Hearing needs: No Vision needs: Yes Female Reproductive History Menstrual Age of Menarche: 13 Date of last menstrual period: 06/22/23 Review of Systems Const All systems reviewed & are unremarkable except as noted in HPI and below Physical Exam Vital Signs: Last Vital Signs BP 116/70 07/08/23 09:42 BMI result Body Mass Index 26.9 Const General: cooperative, healthy appearing and no acute distress Orientation/consciousness: patient oriented x3 GI Inspection: Yes normal to inspection Palpation (GI): Soft to palpation and Other GI palpation findings present ( Nontender) Rectal Exam - Female: visual inspection normal General: Yes bladder normal to palpation External Female Exam: normal appearance of the urethra Speculum Exam - Vagina: normal appearance of the vagina, normal palpation and normal vaginal discharge Speculum Exam - Cervix: normal appearance of the cervix, normal palpation and Other cervical findings present (Clear mucus at the cervix) Bimanual exam- vagina & uterus: normal bimanual exam, normal palpation, uterine size normal, bladder normal to palpation, normal palpation, uterine shape normal and non-tender Bimanual Exam- Adnexa, other: normal adnexae Neuro General: patient oriented x3 Assessment & Plan Assessment & Plan (1) Chlamydia contact, untreated: Code(s): Z20.2 - Contact with and (suspected) exposure to infections with a predominantly sexual mode of transmission Plan Discussed: Exposure risks, mode of transport mission, repeat culture today per patient request and confirmation. Advise no unprotected intimacy for the time being. All of her questions and concerns were addressed to the best of my ability and shared decision making. She is agreeable to the plan of care. Consider reaching out to [facility] for any prior culture records for herself. Coding Level of Care Code Est Pt Level 3 (13508) Diagnoses Chlamydia contact, untreated Z20.2
[2023-07-08 09:42] VITALS: BP 116/70; BMI 26.9
== END 2023-07-08 10:30 | disposition home or self-care (01) ==
PROVIDERS: PCP Internal Medicine; Visit Provider Advanced Practice Midwife
DX: Z20.2 Contact with and (suspected) exposure to infections with a predominantly sexual mode of transmission (principal)
CPT/HCPCS: 99213

== ENCOUNTER 2023-07-08 13:57 | Outpatient (REF) | payer OTHER, SELFPAY ==
[2023-07-09 10:30] LABS: CT PCR NOT DETECTED (Not Detect.); NG PCR NOT DETECTED (Not Detect.)
== END 2023-07-08 13:58 | disposition home or self-care (01) ==
LOC: HO.LNP 13:57
PROVIDERS: Visit Provider Advanced Practice Midwife
DX: Z20.2 Contact with and (suspected) exposure to infections with a predominantly sexual mode of transmission (principal)
CPT/HCPCS: 0353U

== ENCOUNTER → 2023-07-08 15:00 | Outpatient (BNV) | payer OTHER, SELFPAY | PROVIDERS: PCP Internal Medicine; Visit Provider Radiology Diagnostic Radiology | DX: Z12.31 Encounter for screening mammogram for malignant neoplasm of breast (principal) | CPT/HCPCS: 77063; 77067 ==

== ENCOUNTER 2023-07-08 15:11 | Outpatient (REF) | payer OTHER, SELFPAY | END 2023-07-08 15:12 | disposition home or self-care (01) | LOC: HO.MAMMO 15:11 | PROVIDERS: PCP Internal Medicine; Visit Provider Internal Medicine | DX: Z12.31 Encounter for screening mammogram for malignant neoplasm of breast (principal) | CPT/HCPCS: 77063; 77067 ==

== ENCOUNTER 2023-09-22 07:42 | Outpatient (AMB) | payer OTHER, SELFPAY ==
--- NOTE | 2023-09-22 07:49 | A.OFFVIS_ITS ---
Intake Vital Signs 09/22/23 07:52 Height 5 ft 4 in Weight 156 lb BMI 26.8 BP 100/60 Intake Visit Reasons: BC consult Cd Manufacturing Supervisor: Cd Manufacturing Supervisor Present Allergies No Known Allergies [No Known Allergies*] Allergy (Verified 09/22/23 07:50) Is last menstrual period known: Yes Last menstrual period: 09/09/23 HPI HPI Comments History of Present Illness Details Patient is here today for control consult. She denies any contraindications to control such as: migraines with aura, history of DVT or pulmonary emboli, high blood pressure, liver disease, thrombolic disorders, Lupus, +SIL, breast cancer, or smoking. She reports regular menstrual cycles lasting for 4 days. She has not interested in an inserted/implanted product. 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 Cognitive needs: No Hearing needs: No Vision needs: Yes Female Reproductive History Menstrual Age of Menarche: 13 Duration of menses: 3-5 days Date of last menstrual period: 09/09/23 Review of Systems Const All systems reviewed & are unremarkable except as noted in HPI and below Endo Reports no additional complaints Physical Exam Vital Signs: Last Vital Signs BP 100/60 09/22/23 07:52 BMI result Body Mass Index 26.8 Const General: cooperative, healthy appearing and no acute distress Psych Appearance: well kempt Attitude: cooperative Thought process: Normal thought process present Assessment & Plan Assessment & Plan (1) control counseling: Code(s): Z30.09 - Encounter for other general counseling and advice on contraception Plan Control Counseling Reviewed all products available with the aid of the CDC efficacy chart and prior control booklet information. Use and side effects of control: Instructed to start the pill within the first 5 days of the menstrual period. Recommended to take pill at same time every day and with food to prevent stomach upset. Switch to bedtime intake with food if still experiencing nausea. Consider setting the cell phone for alerts as a reminder to take the pill at the same time. Use a back up method (condoms or abstinence if needed) if any late or missed doses until the end of the pill pack. Take the dose as soon as possible, and take your regular pill on time. If you miss the pill often, then consider another option of control. Always use condoms for STI prevention if indicated. Instructed patient to take for at least 3 months the body is acclimated to it. Most side effects go away with time in the first three months. Warnings: go to ED if and loss of vision/blindness, severe headache, chest pain or difficulty breathing, severe abdominal pain, or any pain or swelling in an extremity. Return in 3 months for pill check, or sooner if any concerns. All of her questions and concerns were addressed to the best of my ability and shared decision making. She is agreeable to plan of care. Medications: New norethindrone ac-eth estradiol 1-20 mg-mcg (Microgestin) cycle package monthly, 21 days of active pills, then complete one week of inactive pills before starting a new package 1 tab PO DAILY 28 tabs 4RF Coding Level of Care Code Est Pt Level 3 (38513) Diagnoses control counseling Z30.09
[2023-09-22 07:52] VITALS: BP 100/60; BMI 26.8
== END 2023-09-22 09:52 | disposition home or self-care (01) ==
LOC: HO.HWS 07:42
PROVIDERS: PCP Internal Medicine; Visit Provider Advanced Practice Midwife
DX: Z30.09 Encounter for other general counseling and advice on contraception (principal)
CPT/HCPCS: 99213

== ENCOUNTER → 2023-09-22 07:42 | Outpatient (BNVA) | payer OTHER, SELFPAY | PROVIDERS: PCP Internal Medicine; Visit Provider Advanced Practice Midwife ==

== ENCOUNTER 2023-12-13 13:43 | Outpatient (AMB) | payer OTHER, SELFPAY ==
[2023-12-13 13:50] VITALS: BP 122/70; PULSE 78; O2SAT 98; BMI 27.8
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
== END 2023-12-13 14:27 | disposition home or self-care (01) ==
PROVIDERS: PCP Internal Medicine; Visit Provider Internal Medicine
DX: M54.2 Cervicalgia (principal); V89.2XXA Person injured in unspecified motor-vehicle accident, traffic, initial encounter; M54.50 Low back pain, unspecified
CPT/HCPCS: 99213

== ENCOUNTER 2023-12-30 08:00 | Outpatient (RCR) | payer OTHER, SELFPAY | END 2024-02-06 09:25 | disposition home or self-care (01) | LOC: HO.PT 08:00 | PROVIDERS: PCP Internal Medicine; Visit Provider Physical Therapist | DX: M79.671 Pain in right foot (principal); G89.29 Other chronic pain | CPT/HCPCS: 97110; 97140; 97161 ==

== ENCOUNTER 2024-05-11 09:00 | Outpatient (RCR) | payer OTHER, SELFPAY ==
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
== END 2024-07-13 08:09 | disposition home or self-care (01) ==
LOC: HO.PT 09:00
PROVIDERS: PCP Internal Medicine; Visit Provider Internal Medicine
DX: M54.50 Low back pain, unspecified (principal); M54.2 Cervicalgia; V89.2XXD Person injured in unspecified motor-vehicle accident, traffic, subsequent encounter
CPT/HCPCS: 97110; 97112; 97140; 97162; 97530

== ENCOUNTER 2024-06-05 16:15 | Outpatient (AMB) | payer OTHER, SELFPAY ==
[2024-06-05 16:24] VITALS: BP 126/72; PULSE 77; O2SAT 98; BMI 28.0
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
== END 2024-06-05 17:07 | disposition home or self-care (01) ==
PROVIDERS: PCP Internal Medicine; Visit Provider Internal Medicine
DX: Z00.00 Encounter for general adult medical examination without abnormal findings (principal); Z53.20 Procedure and treatment not carried out because of patient's decision for unspecified reasons

== ENCOUNTER 2024-06-08 07:11 | Outpatient (REF) | payer OTHER, SELFPAY ==
[2024-06-08 07:59] LABS: MANUAL DIFF FLAG NO
[2024-06-08 08:13] LABS: Basophils Percent Auto 0.7 % (0-2); Eosinophils Absolute Auto 0.2 X10*3/uL (0.0-0.4); Eosinophils Percent Auto 3.9 % (0-4); Hematocrit 36.6 % (37.0-47.0); Hemoglobin 12.9 g/dl (12.0-16.0); Imm Gran Abs Auto 0.02 X10*3/uL (0.00-0.03); Imm Gran Pct Auto 0.4 % (0.0-0.4); Lymphocytes Absolute Auto 1.9 X10*3/uL (1.2-4.9); Lymphocytes Percent Auto 34.5 % (20-40); Mean Corpuscular HGB Conc 35.2 g/dl (31.0-35.0); Mean Corpuscular Hemoglobin 31.7 pg (27.0-33.0); Mean Corpuscular Volume 89.9 fL (80.0-98.0); Mean Platelet Volume 9.4 fL (9.4-12.3); Monocytes Absolute Auto 0.4 X10*3/uL (0.1-1.2); Monocytes Percent Auto 6.8 % (2-11); Neutrophils Absolute Auto 2.9 x10*3/uL (2.0-8.3); Neutrophils Percent Auto 53.7 % (45-73); Platelet Count 255 X10*3/uL (160-400); Red Blood Count 4.07 X10*6/uL (4.20-5.50); Red Cell Distribution Width 11.8 % (11.0-16.0); White Blood Count 5.5 X10*3/uL (4.8-10.8)
[2024-06-08 08:22] LABS: Estimated Average Glucose 94 mg/dL; Hemoglobin A1C 95.9072 umol/L; Hemoglobin A1c % 4.9 % (<6.0)
[2024-06-08 08:35] LABS: Alanine Aminotransferase 27 U/L (0-31); Albumin Level 4.3 g/dL (3.5-5.0); Alkaline Phosphatase 48 U/L (39-117); Anion Gap 12 (12-20); Aspartate Amino Transferase 28 U/L (5-31); Bilirubin Total 0.4 mg/dL (0.0-1.0); Blood Urea Nitrogen 9 mg/dL (9-16); C Reactive Protein 0.46 mg/dL (< or = 0.50); Calcium 9.5 mg/dL (8.4-10.2); Carbon Dioxide 25 mmol/L (22-29); Chloride 106 mmol/L (96-108); Cholesterol 170 mg/dL (<200); Estimated Glomerular Filt Rate > 60; Glucose Random 97 mg/dL (60-115); HDL Cholesterol 40 mg/dL (>40); LDL Cholesterol Calculated 105 mg/dL (<100); Potassium 4.2 mmol/L (3.3-5.1); Sodium 139 mmol/L (135-145); Total Protein 7.4 g/dL (6.5-8.0); Triglycerides 126 mg/dL (<150)
[2024-06-08 08:50] LABS: Erythrocyte Sedimentation Rate 17 MM/HR (0-20)
[2024-06-08 08:53] LABS: Free T4 (Free Thyroxine) 0.96 ng/dL (0.71-1.85); Thyroid Stimulating Hormone 2.65 uIU/mL (0.32-4.0); Vitamin D 25-OH Total 18.5 ng/mL (>30)
[2024-06-08 09:15] LABS: Folate 9.1 ng/mL (> or = 4.0); Vitamin B12 437 pg/mL (200-900)
== END 2024-06-08 07:12 | disposition home or self-care (01) ==
LOC: HO.LAB 07:11
PROVIDERS: PCP Internal Medicine; Visit Provider Internal Medicine
DX: E66.3 Overweight (principal); E78.00 Pure hypercholesterolemia, unspecified; Z13.1 Encounter for screening for diabetes mellitus
CPT/HCPCS: 36415; 80053; 80061; 82306; 82607; 82746; 83036; 84439; 84443; 85025; 85652; 86140

== ENCOUNTER 2025-02-20 08:41 | Outpatient (REF) | payer OTHER, SELFPAY ==
[2025-02-20 10:05] LABS: MANUAL DIFF FLAG NO
[2025-02-20 10:25] LABS: Hematocrit 36.6 % (37.0-47.0); Hemoglobin 12.9 g/dl (12.0-16.0); Imm Gran Abs Auto 0.01 X10*3/uL (0.00-0.03); Imm Gran Pct Auto 0.2 % (0.0-0.4); Lymphocytes Absolute Auto 1.7 X10*3/uL (1.2-4.9); Mean Corpuscular HGB Conc 35.2 g/dl (31.0-35.0); Mean Corpuscular Hemoglobin 31.2 pg (27.0-33.0); Mean Corpuscular Volume 88.6 fL (80.0-98.0); NRBC Abs Auto 0.000 X10*3/uL (0.0-0.012); NRBC Pct Auto 0.0 /100WBC (0.0-0.2); Platelet Count 275 X10*3/uL (160-400); Red Blood Count 4.13 X10*6/uL (4.20-5.50); White Blood Count 5.0 X10*3/uL (4.8-10.8)
[2025-02-20 10:45] LABS: Appearance Urine Clear; Glucose Urine UA Negative (Negative); PH 5.5 (5.0-9.0); Specific Gravity - Urine 1.020 (1.005-1.025); UMIC TRIGGER UACC YES
[2025-02-20 10:57] LABS: Alanine Aminotransferase 24 U/L (0-31); Albumin Level 4.7 g/dL (3.5-5.0); Alkaline Phosphatase 57 U/L (39-117); Anion Gap 12 (12-20); Aspartate Amino Transferase 25 U/L (5-31); Blood Urea Nitrogen 9 mg/dL (9-16); Calcium 9.3 mg/dL (8.4-10.2); Carbon Dioxide 29 mmol/L (22-29); Chloride 105 mmol/L (96-108); Cholesterol 183 mg/dL (<200); Estimated Glomerular Filt Rate > 60; HDL Cholesterol 42 mg/dL (>40); Magnesium 2.1 mg/dL (1.6-2.6); Potassium 4.5 mmol/L (3.3-5.1); Sodium 141 mmol/L (135-145); Total Protein 7.8 g/dL (6.5-8.0); Triglycerides 142 mg/dL (<150)
[2025-02-20 11:13] LABS: Free T4 (Free Thyroxine) 1.01 ng/dL (0.71-1.85)
[2025-02-20 11:21] LABS: Folate 11.1 ng/mL (> or = 4.0); Vitamin B12 540 pg/mL (200-900)
[2025-02-20 13:08] LABS: Hemoglobin A1C 123.9898 umol/L; Total Hemoglobin (HGBA1C) 4035.9965 umol/L
== END 2025-02-20 08:42 | disposition home or self-care (01) ==
LOC: HO.LAB 08:41
PROVIDERS: PCP Internal Medicine; Visit Provider Internal Medicine
DX: R42 Dizziness and giddiness (principal); E55.9 Vitamin D deficiency, unspecified; R23.2 Flushing; E78.00 Pure hypercholesterolemia, unspecified; Z13.31 Encounter for screening for depression; Z13.39 Encounter for screening examination for other mental health and behavioral disorders
CPT/HCPCS: 36415; 80053; 80061; 81001; 82306; 82607; 82746; 83036; 83735; 84439; 85025; 96127

== ENCOUNTER 2025-02-20 08:41 | Outpatient (AMB) | payer OTHER, SELFPAY ==
[2025-02-20 08:43] VITALS: BP 122/80; PULSE 81; RESP 18; TEMP 36.1; O2SAT 98; BMI 27.7
--- NOTE | 2025-02-20 08:43 | A.OFFPC_ITS ---
Vital Signs 02/20/25 08:43 Height 5 ft 4 in Weight 161 lb 6 oz BMI 27.7 BP 122/80 Blood Pressure Location Lt brachial Position Sitting Respiration 18 Pulse 81 Pulse Source Pulse Oximeter Temp 97.0 F Temp Source Temporal Artery Scan Pulse Oximetry (%) 98 Oxygen Delivery Method Room Air Intake Visit Reasons: possible vertigo Allergies No Known Allergies (No Known Allergies*) Allergy (Verified 02/20/25 08:46) Tobacco use date assessed: 02/20/25 Dental Screening Dental Screen Date: 02/20/25 Did you have a dental visit in the last 12 months?: Yes Did you have a dental problem in the last 6 months where you did not have access to dental care?: No Was dental information given to patient?: Patient has dentist HPI possible vertigo HPI Details patient is concern on sugars, blood work. 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 1. Little interest or pleasure in doing things: not at all 2. Feeling down, depressed, or hopeless: not at all 3. Trouble falling or staying asleep, or sleeping too much: not at all 4. Feeling tired or having little energy: not at all 5. Poor appetite or overeating: not at all 6. Feeling bad about yourself - or that you are a failure or have let yourself or your family down: not at all 7. Trouble concentrating on things, such as reading the newspaper or watching television: not at all 8. Moving or speaking so slowly that other people could have noticed. Or the opposite - being so fidgety or restless that you have been moving around a lot more than usual: not at all 9. Thoughts that you would be better off or of hurting yourself in some way: not at all Total score: 0 Depression Screening Interpretation: Negative Depression Screening Done: Yes 80403 - PHQ-9 Billing: Yes Source: Developed by Drs. Juan Obrien, Nasreen Granda, Jaswinder Min and colleagues, with an educational derrick from [email or web address]. Thrive Questionnaire Date Thrive assessed: 02/20/25 I am a: Patient What is your living situation today?: I have a steady place to live Within the past 12 months, did the food you bought not last and you didn't have the money to get more?: I choose not to answer this question Within the past 12 months, did you worry whether your food would run out before you got money to buy more?: I choose not to answer this question Do you have trouble paying for medicines?: I choose not to answer this question Do you have trouble getting transportation to medical appointments?: No Do you have trouble paying your heating and electricity bill?: I choose not to answer this question Do you have trouble taking care of your child, family member or friend?: No Do you have trouble with day-to-day activities such as bathing, preparing meals, shopping, managing finances, etc.?: No Are you currently unemployed and looking for a job?: No Are you interested in more education?: No Please select the resources that you would like help with: None Currently or been in a relationship where the following occur: No concerns reported THRIVE Score: 0 AUDIT C Alcohol Use Questionnaire (AUDIT-C) 1. How often do you have a drink containing alcohol?: Never 3. How often do you have six or more drinks on one occasion?: Never Total Score: 0 JOB-7 AMB Questionnaire JOB-7 Date JOB - 7 assessed: 02/20/25 Feeling nervous, anxious, or on edge: 1 = Several days Not being able to stop or control worryin = Several days Worrying too much about different things: 1 = Several days Trouble relaxin = Several days Being so restless that it is hard to sit still: 0 = Not at all Becoming easily annoyed or irritable: 0 = Not at all Feeling afraid as if something awful might happen: 0 = Not at all Total JOB-7 score (0-4 normal; 5-9 mild; 10-14 moderate; 15-21 severe): 4 Source: Developed by Drs. Juan Obrien, Nasreen Granda, Jaswinder Min and colleagues, with an educational derrick from [email or web address]. JOB-7 Assessment Billing JOB-7 Assessment Tool: JOB-7 Assessment 88008 Physical exam (Primary Care) Vital Signs: Last Vital Signs Temp 97.0 F 02/20/25 08:43 Pulse 81 02/20/25 08:43 Resp 18 02/20/25 08:43 BP 122/80 02/20/25 08:43 Pulse Ox 98 02/20/25 08:43 Oxygen Delivery Method Room Air 02/20/25 08:43 BMI result Body Mass Index 27.7 Tobacco/Smoking Status: Tobacco use Status Tobacco use date assessed 02/20/25 02/20/25 08:47 Patient Tobacco Use Status Never used Tobacco 02/20/25 08:47 Tobacco use type Cigarette 02/20/25 08:47 e-Cigarette/Vaping Use Never Used 02/20/25 08:47 PHQ-9: PHQ-9 Score PHQ-9: Total score 0 02/20/25 08:50 Depression Screening Interpretation: Negative Thrive Assessment: Date of Thrive Assessment Date Thrive assessed 02/20/25 02/20/25 08:47 Currently or been in a relationship where the following occur: No concerns reported Const General: alert; No acute distress Eyes Conjunctivae: conjunctivae normal Resp Auscultation: clear to auscultation bilaterally Cardio Rate: regular rate Rhythm: regular rhythm GI Inspection: Yes normal to inspection Extrem General: Yes normal to inspection and No edema Coding Level of Care Code Est Pt Level 4 (32157) Diagnoses Vitamin D deficiency E55.9 Hot flashes R23.2 Vertigo R42 Additional Codes JOB-7 Assessment Billing - JOB-7 Assessment Tool: JOB-7 Assessment 36724 ([id number]) PHQ-9 - 91155 - PHQ-9 Billing: Yes ([id number]) Assessment & Plan Assessment & Plan (1) Vitamin D deficiency: Code(s): E55.9 - Vitamin D deficiency, unspecified Category: Medical Plan: Patient is advised to take vitamin-D 4172-8587 units once a day (2) Hot flashes: Code(s): R23.2 - [place] Category: Medical (3) Vertigo: Code(s): R42 - Dizziness and giddiness Category: Medical Plan History of Present Illness The patient is a 49-year-old female presenting with acute vertigo and associated symptoms. She reports experiencing extreme vertigo upon waking, which was preced ed by a vivid dream and a restless night with frequent awakenings to urinate. The vertigo was accompanied by cold sweats and a sensation of overheating, which improved slightly after turning on the air conditioning. The patient describes a subsequent episode of vertigo later in the day, characterized by severe dizziness and nausea, leading to a day of rest and minimal activity. She notes persistent mild dizziness and headaches in the following days, with a sensation of instability. The patient has a history of lumbar spondylosis and reports a recent blood workup in May 2024, which showed normal results except for low vitamin D levels. She has been advised to take vitamin D supplements daily. She also reports perimenopausal symptoms, including hot flashes and mood changes, and expresses concern about potential sleep apnea due to irregular sleep patterns and daytime fatigue. There is a family history of diabetes and thyroid issues, prompting her interest in monitoring these conditions. Health Maintenance - Vitamin D supplementation: Advised to take 1000 to 2000 units daily - Mammogram: Due for screening Social History - Employment: Works in a demanding job with long hours, contributing to stress and irregular sleep patterns - Family history: Diabetes on father's side, thyroid issues on mother's side - Sleep habits: Irregular sleep patterns, often sleep-deprived, and experiences difficulty maintaining a regular sleep schedule Review of Systems - Neurological: Reports extreme vertigo, dizziness, and headaches; denies syncope - General: Reports cold sweats and sensation of overheating; denies fever - Gastrointestinal: Reports nausea; denies vomiting - Genitourinary: Reports frequent urination at night; denies dysuria - Endocrine: Reports hot flashes and mood changes Physical Exam - Cardiovascular: Heart sounds auscultated, no abnormalities noted - Gastrointestinal: Abdominal sounds noted, no abnormalities reported Results - Labs: Blood work from May 2024 showed normal blood count, electrolytes, renal function, blood sugar, liver function, cholesterol, vitamin B12, thyroid, and folic acid; low vitamin D levels noted Plan The patient will undergo further evaluation to determine the cause of her vertigo, with consideration of potential contributing factors such as sleep disturbances and stress. Blood tests will be conducted to monitor thyroid function, blood sugar levels, and vitamin D status, given her family history and previous findings. The patient is advised to maintain a regular sleep schedule and consider lifestyle modifications to manage stress and improve sleep quality. She is encouraged to continue vitamin D supplementation and to schedule a mammogram as part of her preventative care. Follow-up is recommended in four months to assess progress and consider further interventions if symptoms persist. Patient was informed and verbally consented to the use of an ambient scribe for clinic note documentation during this visit. Discussion Notes During the visit, we discussed the potential causes of the patient's vertigo, including sleep disturbances and stress, and the importance of addressing these factors. I recommended blood tests to evaluate thyroid function, blood sugar levels, and vitamin D status, considering her family history and previous lab results. We also talked about the importance of maintaining a regular sleep schedule and making lifestyle changes to reduce stress and improve sleep quality. The patient was advised to continue vitamin D supplementation and to schedule a mammogram as part of her preventative care. We agreed on a follow-up in four months to evaluate her progress and consider further interventions if necessary. Patient Instructions - Continue taking vitamin D supplements as advised. - Schedule and attend a mammogram screening. - Maintain a regular sleep schedule and avoid stimulants before bedtime. - Implement lifestyle changes to manage stress and improve sleep quality. - Follow up in four months to assess progress and discuss further interventions if needed. Orders: Orders Complete Blood Count Auto Diff Today R23.2 - [place] Comprehensive Met. Panel Today R23.2 - [place] Lipid Panel Today E78.00 - Pure hypercholesterolemia, unspecified, R23.2 - [place] UA CC w/rflx Micro + Cult Today R23.2 - [place], R30.0 - Dysuria Hemoglobin A1c Today R23.2 - [place] Free T4 (Free Thyroxine) Today R23.2 - [place] Vitamin B12 and Folate Today R23.2 - [place] Vitamin D 25-OH Total Today R23.2 - [place] Magnesium Today R23.2 - [place]
--- OUTSIDE RECORDS SUMMARY | 2025-02-20 08:56 | XMS_ITS | Clinical Summary ---
Author Organization [facility] Address [address] [place] [phone] Phone Care Team Providers Care Entry Processor Name Role Phone Darrell Gandhi MD Primary Care Provider [phone] Allergies No known active allergies Medications Medication-Free Text Vit w/ Fe Bisg-FA 27-1 MG Tablet, Sig: as directed Orally Active Social History Tobacco Use Types Packs/Day Years Used Date Smoking Tobacco: Never Smokeless Tobacco: Never Tobacco Cessation:Counseling Given: Not Answered Alcohol Use Standard Drinks/Week Comments Never 0 (1 standard drink = 0.6 oz pur e alcohol) Education Answer Date Recorded Are you interested in more education? Not on shree e 11/19/2022 Are you concerned about learning? Not on file 11/19/2022 No 11/19/2022 No 11/19/2022 Digital Access Answer Date Recorded No 12/20/2022 No 12/20/2022 Reliable internet access at home? Not on file 12/20/2022 Device with a working camera? Not on file Comments Unknown Sex and Gender Information Value Date Recorded Sex Assigned at Not on file Legal Sex Female 9:26 PM EDT Gender Identity Not on file Sexual Orientation Not on file Last Filed Vital Signs Vital Sign Reading Time Taken Comments Blood Pressure 110/62 10/08/2016 11:38 AM EDT Pulse 71 10/08/2016 11:38 AM EDT Temperature 36.8 C (98.2 F) 10/08/2016 11:38 AM EDT Respiratory Rate - - Oxygen Saturation - - Inhaled Oxygen Concentration - - Weight 67.4 kg (148 lb 9.6 oz) 10/08/2016 11:38 AM EDT Height 160 cm (5' 3 ) 10/08/2016 11:38 AM EDT Body Mass Index 26.32 10/08/2016 11:38 AM EDT Plan of Treatment Health Maintenance Due Date Last Done Comments DEPRESSION SCREENING 1988 HEPATITIS C SCREENING 1994 HIV ONE-TIME SCREENING (18-6 5 YEARS) 1994 MAMMOGRAM 2016 PAP SMEAR 08/19/2017 08/19/2014 LIPID PANEL 02/04/2021 02/05/2016 COLOGUARD 2021 COLONOSCOPY 2021 COLORECTAL CANCER SCREENING 2021 FIT TEST 2021 FOBT 2021 SIGMOIDOSCOPY 2021 VIRTUAL COLONOSCOPY 2021 COVID-19 VACCINE (4 - 2023-2 5 season) 2024 08/28/2021, 08/09/2020, 07/16/2020 Adult Td,Tdap Booster 06/03/2033 06/03/2023 , 03/25/2011 SMOKING STATUS SCREENING (On ce After 26 Yrs) Completed 12/06/2023 HEPATITIS A VACCINES Aged Out No long er eligible based on patient's age to complete this topic HIB VACCINES Aged Out No longer eligi ble based on patient's age to complete this topic MENINGOCOCCAL VACCINES (ACWY) Aged Out No longer eligible based on patient's age to complete this topic MENINGOCOCCAL VACCINES (B) Aged Out N o longer eligible based on patient's age to complete this topic PNEUMOCOCCAL VACCINES (0-49 years) Aged Out No longer eligible b ased on patient's age to complete this topic Medical Devices Not on file Procedures Procedure Name Priority Date/Time Associated Diagnosis Comments OUTSIDE LDL Routine 02/05/2016 from Last 3 Months or Most Recently Relevant to Health Maintenance Results * Outside LDL (02/05/2016) LDL - External 89 50 - 250 mg/ml us Historical Provider LAB BLOOD ORDERABLES Macie l Result from Last 3 Months or Most Recently Relevant to Health Maintenance Insurance [employer] [place] Care Teams Entry Processor Relationship Specialty Start Date End Date Darrell Gandhi MD [address] [place] [id number] PCP - General Internal Medicine 11/14/23 Additional Source Comments The information contained in this document represents components of the legal health record. It is not the complete legal health record.[facility]
== END 2025-02-20 09:18 | disposition home or self-care (01) ==
PROVIDERS: PCP Internal Medicine; Visit Provider Internal Medicine
DX: E55.9 Vitamin D deficiency, unspecified (principal); R23.2 Flushing; R42 Dizziness and giddiness

== ENCOUNTER 2025-06-11 16:24 | Outpatient (AMB) | payer OTHER, SELFPAY ==
[2025-06-11 16:27] VITALS: BP 132/60; PULSE 73; TEMP 36.1; O2SAT 97; BMI 27.8
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
== END 2025-06-11 17:16 | disposition home or self-care (01) ==
LOC: HO.HMCH 16:24
PROVIDERS: PCP Internal Medicine; Visit Provider Internal Medicine
DX: Z00.00 Encounter for general adult medical examination without abnormal findings (principal); M47.816 Spondylosis without myelopathy or radiculopathy, lumbar region; Z53.20 Procedure and treatment not carried out because of patient's decision for unspecified reasons; E66.3 Overweight; E55.9 Vitamin D deficiency, unspecified; Z12.11 Encounter for screening for malignant neoplasm of colon